=== PATIENT | female | born 1975 | race Two or more races ===

== ENCOUNTER 2018-04-20 11:25 | Emergency (ER) | payer OTHER ==
[2018-04-20] MEDS ORDERED: CLINDAMYCIN 600 MG/D5W RTU 600 MG/50 ML RTUPB IV ONE (12:37)
[2018-04-20] MEDS ORDERED: KETOROLAC TROMETHAMINE INJ/PF 30 MG/1 ML SDV IV ONE (12:37)
--- NOTE | 2018-04-20 12:41 | ER Document Report ---
ED Medical Screen (RME) - General Chief Complaint: Facial Swelling Stated Complaint: FACIAL SWELLING Time Seen by Provider: 04/20/18 12:31 Notes: 42-year-old female, past medical history PTSD, GERD, presents with increased left-sided facial swelling and now difficulty opening of her mouth. [facility] to [facility] for further evaluation and treatment. She had a small bug bite on her face 2 days ago and was given Benadryl and a steroid. PE: Left facial swelling and tenderness, worse over mandibular area. Unable to fully open up mouth. No stridor and handling secretions. I have greeted and performed a rapid initial assessment of this patient. A comprehensive ED assessment and evaluation of the patient, analysis of test results and completion of the medical decision making process will be conducted by additional ED providers. TRAVEL OUTSIDE OF THE [place] IN LAST 30 DAYS: No - Related Data Allergies/Adverse Reactions: No Known Allergies Allergy (Verified 04/20/18 11:36) Past Medical History Psychiatric Medical History: Reports: Hx Anxiety, Hx Post Traumatic Stress Disorder Past Surgical History: Reports: Hx Section - x2 - Immunizations Hx Diphtheria, Pertussis, Tetanus Vaccination: Yes Physical Exam - Vital signs Vitals: Temp Pulse Resp BP Pulse Ox 98.5 F 80 18 149/85 H 98 04/20/18 11:43 04/20/18 11:43 04/20/18 11:43 04/20/18 11:43 04/20/18 11:43 Course - Vital Signs Vital signs: Temp Pulse Resp BP Pulse Ox 98.5 F 80 18 149/85 H 98 04/20/18 11:43 04/20/18 11:43 04/20/18 11:43 04/20/18 11:43 04/20/18 11:43 Doctor's Discharge - Discharge Referrals: [facility] ALEXANDER PA [Primary Care Provider] - Follow up as needed
[2018-04-20 13:24] LABS: ABSOLUTE BASOPHILS # (AUTO) 0.1 10^3/uL (0.0-0.2); ABSOLUTE EOSINOPHILS # (AUTO) 0.1 10^3/uL (0.0-0.6); ABSOLUTE LYMPHOCYTES (AUTO) 4.1 10^3/uL (0.5-4.7); ABSOLUTE MONOCYTES (AUTO) 0.8 10^3/uL (0.1-1.4); ABSOLUTE NEUT (AUTO) 8.9 10^3/uL (1.7-8.2); BASOPHILS % (AUTO) 0.6 % (0-2); EOSINOPHILS % (AUTO) 0.8 % (0-6); HEMATOCRIT 42.6 % (36.0-47.0); HEMOGLOBIN 14.5 g/dL (12.0-15.5); LYMPHOCYTES % (AUTO) 29.3 % (13-45); MEAN CORPUSCULAR HEMOGLOBIN 28.8 pg (27.0-33.4); MEAN CORPUSCULAR HGB CONC 34.1 g/dL (32.0-36.0); MEAN CORPUSCULAR VOLUME 84 fl (80-97); MONOCYTES % (AUTO) 5.9 % (3-13); PLATELET COUNT 268 10^3/uL (150-450); RED BLOOD COUNT 5.05 10^6/uL (3.72-5.28); SEGMENTED NEUTROPHILS % (AUTO) 63.4 % (42-78); TOTAL CELLS COUNTED % (AUTO) 100 %
[2018-04-20 14:00] LABS: ALANINE AMINOTRANSFERASE 74 U/L (9-52); ALBUMIN 4.1 g/dL (3.5-5.0); ALKALINE PHOSPHATASE 87 U/L (38-126); ANION GAP 13 (5-19); ASPARTATE AMINO TRANSFERASE 42 U/L (14-36); BILIRUBIN,DIRECT 0.4 mg/dL (0.0-0.4); BILIRUBIN,TOTAL 0.5 mg/dL (0.2-1.3); BLOOD UREA NITROGEN 11 mg/dL (7-20); CALCIUM 9.3 mg/dL (8.4-10.2); CARBON DIOXIDE 26 mmol/L (22-30); CHLORIDE 103 mmol/L (98-107); GLUCOSE 137 mg/dL (75-110); TOTAL PROTEIN 7.3 g/dL (6.3-8.2)
--- NOTE | 2018-04-20 14:42 | ER Document Report ---
ED General <LAWRENCE BRITTON - Last Filed: 04/20/18 16:09> - General Mode of Arrival: Ambulatory Information source: Patient TRAVEL OUTSIDE OF THE [place] IN LAST 30 DAYS: No <KIA BUENO - Last Filed: 04/20/18 21:57> - General Chief Complaint: Facial Swelling Stated Complaint: FACIAL SWELLING Time Seen by Provider: 04/20/18 12:31 Notes: Patient is a 42 year old female with PTSD, GERD, anxiety and depression presents to the emergency department complaining of left sided facial swelling and difficulty opening her mouth. Patient was seen at the [facility] and was sent to the emergency department for further evaluation. Patient was seen at [facility] 2 days ago for a small bug bite in the same area and was given Benadryl and steroids. Patient is also currently prescribed Protonix and Topamax. (KIA BUENO) - Related Data Allergies/Adverse Reactions: No Known Allergies Allergy (Verified 04/20/18 11:36) Past Medical History - General Information source: Patient - Social History Smoking Status: Current Every Day Smoker Chew tobacco use (# tins/day): No Frequency of alcohol use: Social Drug Abuse: None Family History: Reviewed & Not Pertinent Patient has suicidal ideation: No Patient has homicidal ideation: No Psychiatric Medical History: Reports: Hx Anxiety, Hx Post Traumatic Stress Disorder Past Surgical History: Reports: Hx Section - x2 - Immunizations Hx Diphtheria, Pertussis, Tetanus Vaccination: Yes <KIA BUENO - Last Filed: 04/20/18 21:57> Review of Systems - Review of Systems Constitutional: No symptoms reported EENT: No symptoms reported Cardiovascular: No symptoms reported Respiratory: No symptoms reported Gastrointestinal: No symptoms reported Genitourinary: No symptoms reported Female Genitourinary: No symptoms reported Musculoskeletal: See HPI Skin: See HPI Hematologic/Lymphatic: No symptoms reported Neurological/Psychological: No symptoms reported -: Yes All other systems reviewed and negative <KIA BUENO - Last Filed: 04/20/18 21:57> Physical Exam <LAWRENCE BRITTON - Last Filed: 04/20/18 16:09> <KIA BUENO - Last Filed: 04/20/18 21:57> - Vital signs Vitals: Temp Pulse Resp BP Pulse Ox 98.5 F 80 18 149/85 H 98 04/20/18 11:43 04/20/18 11:43 04/20/18 11:43 04/20/18 11:43 04/20/18 11:43 - Notes Notes: GENERAL: Alert, interacts well. No acute distress. HEAD: Normocephalic. There is an area of erythema and swelling to the left side of the mandible region which is hard and firm, contains a small scab. This swelling continues minimally to the left side of the face. EYES: Pupils equal, round, and reactive to light. Extraocular movements intact. ENT: Oral mucosa moist, tongue midline. NECK: Full range of motion. Supple. Trachea midline. LUNGS: Clear to auscultation bilaterally, no wheezes, rales, or rhonchi. No respiratory distress. HEART: Regular rate and rhythm. No murmurs, gallops, or rubs. ABDOMEN: Soft, non-tender. Non-distended. Bowel sounds present in all 4 quadrants. EXTREMITIES: Moves all 4 extremities spontaneously. No edema. NEUROLOGICAL: Alert and oriented x3. Normal speech. PSYCH: Normal affect, normal mood. SKIN: Warm, dry, normal turgor. No rashes or lesions noted. (KIA BUENO) Course - Laboratory Result Diagrams: 04/20/18 12:58 04/20/18 12:58 <LAWRENCE BRITTON - Last Filed: 04/20/18 16:09> - Laboratory Result Diagrams: 04/20/18 12:58 04/20/18 12:58 <KIA BUENO - Last Filed: 04/20/18 21:57> - Re-evaluation Re-evalutation: 04/20/18 16:09 PROCEEDURE: Skin of the left chin and face was prepped with Shur-Clens. There were 2 discrete areas of quite indurated, tender, erythematous swelling on the left chin with one low on the chin and the other close to the lip. Each was anesthetized with 1% lidocaine local using a total of 4 mL's. Each area was incised with a #11 blade and a small amount of pus was found with each incision. The wounds were each irrigated with 20 mL's normal saline. Each wound was packed with quarter-inch iodoform gauze. (LAWRENCE BRITTON) - Vital Signs Vital signs: Temp Pulse Resp BP Pulse Ox 97.7 F 67 16 149/83 H 96 04/20/18 16:38 04/20/18 16:38 04/20/18 16:38 04/20/18 16:38 04/20/18 16:38 - Laboratory Laboratory results interpreted by me: 04/20/18 04/20/18 12:58 12:58 WBC 14.0 H Absolute Neutrophils 8.9 H Glucose 137 H AST 42 H ALT 74 H Discharge <LAWRENCE BRITTON - Last Filed: 04/20/18 16:09> <KIA BUENO - Last Filed: 04/20/18 21:57> - Discharge Clinical Impression: Abscess of chin, Cellulitis of chin Condition: Stable Disposition: HOME, SELF-CARE Additional Instructions: Abscess You have an abscess (boil). This a pus-forming infection, usually due to staph. Some boils may be left to drain on their own, but most require lancing. From the time the tender lump first appears, it may be three or four days before the abscess is ready to ezekiel. Local heat and rest help at this stage of treatment. An antibiotic may prevent spread of the infection. Once the abscess is opened, packing may be placed into it. This is done so pus is not sealed inside by premature closure of the cavity. The packing will be removed at your follow-up visit or you may be advised to remove it yourself at home. Sometimes this packing must be replaced a few times during healing. The wound will heal with surprisingly little scar. Depending on the size and location of an abscess, healing can take one to four weeks. You may shower and wash the area around the incision site two or three times a day. Antibiotics may be prescribed, but are usually not necessary after an abscess has been drained. If you develop fever, chilling, worsening pain, or increasing swelling in the area, call the doctor or return immediately. Take the antibiotics as prescribed. Use warm soaks to the chin. Keep the wounds covered with gauze. Remove the gauze packing from each wound in 2 days, and try to keep the wounds open for a few days using Q-tips dipped in peroxide and twirled down inside the wounds a few times every day. Follow-up with your doctor Thursday for recheck. Return to the emergency room if any worsening in your symptoms. RETURN TO THE EMERGENCY ROOM IF ANY NEW OR WORSENING SYMPTOMS. Prescriptions: Clindamycin HCl 300 mg PO QID #20 capsule Scribe Attestation: 04/20/18 15:19 I personally performed the services described in the documentation, reviewed and edited the documentation which was dictated to the scribe in my presence, and it accurately records my words and actions. (LAWRENCE BRITTON) Scribe Documentation - Scribe Written by Wayne:: Wayne Joy, 04/20/2018 15:03 acting as scribe for :: Elba <KIA BUENO - Last Filed: 04/20/18 21:57>
--- NOTE | 2018-04-20 14:53 | RADIOLOGY REPORT (SQ) ---
EXAM DESCRIPTION: CT FACIAL AREA WITH COMPLETED DATE/TIME: 04/20/2018 2:34 pm REASON FOR STUDY: trismus, left-sided facial swelling COMPARISON: None. TECHNIQUE: Post contrast images through the facial bones and orbits windowed for bone and soft tissu e. Additional coronal and sagittal reconstructed images reviewed. All images stored on PACS. All CT scanners at this facility use dose modulation, iterative reconstruction, and/or weight based d osing when appropriate to reduce radiation dose to as low as reasonably achievable (ALARA). [facility]: Dose Right [facility]: CareDose [facility]: Dose Right [facility]: Teradose 4D [facility]: [place] CONTRAST TYPE AND DOSE: contrast/concentration: Isovue 370.00 mg/ml; Total Contrast Delivered: 58.0 ml; Total Saline Delivered: 39.0 ml RENAL FUNCTION: Creatinine 0.81 RADIATION DOSE: CT Rad equipment meets quality standard of care and radiation dose reduction techniq ues were employed. CTDIvol: 30.4 mGy. DLP: 572 mGy-cm. . LIMITATIONS: Artifact from metallic dental work. FINDINGS: FACIAL BONES: No fracture or bone lesion. ORBITS: Intact. No fracture. Symmetric intact globes and retroorbital soft tissues. PARANASAL SINUSES: No air-fluid levels worrisome for acute sinusitis. Mucous membrane thickening tien ng the right maxillary outlet best shown on coronal image 25. No nasal polyps SOFT TISSUES: No mass or edema. No abnormal enhancement. Specifically, no pharyngeal abscess is chucky ntified. No intra tonsillar or peritonsillar abscess. INFERIOR BRAIN: Limited view. No acute findings. OTHER: Visualized salivary glands are unremarkable. No nasopharynx oropharynx or hypopharynx mucosal lesions. Scattered bilateral submandibular and carotid space less than 7 mm short axis lymph nodes of doubtful significance. No maxillary or mandibular periapical tooth root abscess or obvious bony o steomyelitis. IMPRESSION: NO ACUTE FINDINGS. TECHNICAL DOCUMENTATION: JOB ID: [id number] Quality ID # [id number]: Final reports with documentation of one or more dose reduction techniques (e.g., Au tomated exposure control, adjustment of the mA and/or kV according to patient size, use of iterative reconstruction technique) 2010 [employer]- All Rights Reserved Reading location - IP/workstation name: [email or web address] [id number]
[2018-04-20] MEDS ORDERED: LIDOCAINE 1% INJ-PF (10 MG/ML) 30 ML SDV INJ ONE (15:08)
[2018-04-20] MEDS ORDERED: FENTANYL CITRATE INJ/PF 100 MCG/2 ML AMPUL IV ONE (15:09)
[2018-04-20] MEDS ORDERED: DIPHENHYDRAMINE HCL 50 MG/ML VIAL IV ONE (15:09)
[2018-04-20 16:42] VITALS: BP 149/83
== END 2018-04-20 17:07 | disposition home or self-care (01) ==
LOC: ER 11:25
DX: L02.01 Cutaneous abscess of face (principal); L03.211 Cellulitis of face; F17.200 Nicotine dependence, unspecified, uncomplicated; K21.9 Gastro-esophageal reflux disease without esophagitis; Z79.899 Other long term (current) drug therapy
CPT/HCPCS: 99284; 96375; 96365; 36415; 87040; 87070; 85025; 87075; 87077; 80053; 87186; 70487; 10061; J1200; J3010; J3490; J1885; 87205